=== PATIENT | female | born 1985 | race Caucasian/White ===

== ENCOUNTER 2024-11-18 18:29 | Emergency (ER) | payer BC ==
[~2024-11-18] VITALS: Ht 162.5 cm; Wt 79.4 kg
[2024-11-18] MEDS ORDERED: Bacitracin Zinc 14 GM TUBE T ONE (19:35)
[2024-11-18] MEDS ORDERED: Tdap Vaccine 0.5 ML SYR (Adult Vaccine) IM ONE (19:35)
[2024-11-18] MEDS ORDERED: Lidocaine Hydrochloride 2% 10 ML AMP SC ONE (19:35)
[2024-11-18] MEDS ORDERED: CEPHALEXIN 500 MG CAP PO ONE (21:30)
[2024-11-18] MEDS ORDERED: CEPHALEXIN500 M1 PO (21:47)
== END 2024-11-18 21:35 | disposition home or self-care (01) ==
LOC: ED 18:29
DX: S61.210A Laceration without foreign body of right index finger without damage to nail, initial encounter (principal); W26.0XXA Contact with knife, initial encounter; Y93.89 Activity, other specified; Y92.89 Other specified places as the place of occurrence of the external cause; Y99.8 Other external cause status